=== PATIENT | male | born 1950 | race Two or more races ===

== ENCOUNTER → 2021-09-28 07:53 | Outpatient (BNVA) | payer MEDICARE, SELFPAY | PROVIDERS: PCP Internal Medicine; Visit Provider Nurse Practitioner Family | DX: M10.9 Gout, unspecified (principal) | CPT/HCPCS: 99202 ==

== ENCOUNTER 2021-10-18 10:31 | Outpatient (REF) | payer MEDICARE, SELFPAY ==
[2021-10-18 11:51] LABS: Blood Urea Nitrogen 17 mg/dL (9-16); Estimated Glomerular Filt Rate > 60; Uric Acid 5.9 mg/dL (3.4-7.0)
== END 2021-10-18 10:32 | disposition home or self-care (01) ==
LOC: HO.HMGCLDS 10:31
PROVIDERS: Visit Provider Nurse Practitioner Family
DX: M10.9 Gout, unspecified (principal)
CPT/HCPCS: 36415; 82565; 84520; 84550

== ENCOUNTER → 2021-10-20 08:55 | Outpatient (BNVA) | payer MEDICARE, SELFPAY | PROVIDERS: PCP Internal Medicine; Visit Provider Nurse Practitioner Family | DX: M10.9 Gout, unspecified (principal); Z79.899 Other long term (current) drug therapy | CPT/HCPCS: 99212 ==

== ENCOUNTER 2021-12-27 08:11 | Outpatient (REF) | payer MEDICARE, SELFPAY ==
[2021-12-27 12:00] LABS: Blood Urea Nitrogen 15 mg/dL (9-16); Estimated Glomerular Filt Rate > 60; Uric Acid 4.7 mg/dL (3.4-7.0)
== END 2021-12-27 08:12 | disposition home or self-care (01) ==
LOC: HO.HMGCLDS 08:11
PROVIDERS: Visit Provider Nurse Practitioner Family
DX: M10.9 Gout, unspecified (principal); Z79.899 Other long term (current) drug therapy
CPT/HCPCS: 36415; 82565; 84520; 84550

== ENCOUNTER → 2021-12-29 13:29 | Outpatient (BNVA) | payer MEDICARE, SELFPAY | PROVIDERS: PCP Internal Medicine; Referring Provider Internal Medicine; Visit Provider Nurse Practitioner Family | DX: M10.9 Gout, unspecified (principal) | CPT/HCPCS: 99212 ==

== ENCOUNTER 2022-12-18 08:37 | Outpatient (AMB) | payer MEDICARE, SELFPAY ==
[2022-12-18 08:43] VITALS: BP 154/74; PULSE 75; TEMP 36.6; O2SAT 97; BMI 28.6
--- NOTE | 2022-12-18 08:43 | A.OFFVIS_ITS ---
Intake Vital Signs 12/18/22 08:43 Height 5 ft 9 in Weight 193 lb 12.581 oz BMI 28.6 BP 154/74 H Blood Pressure Location Lt brachial Position Sitting Pulse 75 Pulse Source Pulse Oximeter Temp 97.9 F Temp Source Skin Pulse Oximetry (%) 97 Oxygen Delivery Method Room Air Intake Visit Reasons: Gout Intake Note: Patient presents today for yearly follow up on gout. 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 He says he did have an attack of gout back in August. This was promptly treated with a course of prednisone and symptoms resolved within a few days. It involved swelling and pain at the right 1st toe where he had previous gout attacks although it seemed to be more in the first IP joint rather than the first MTP joint. He does not seem to have any side effects with 200 mg daily allopurinol or with the course of prednisone. Other joints have not been painful. [facility] Medical History (Updated 12/18/22 @ 08:57 by Salvador Higgins MD) Acute medial meniscus tear of right knee Gout Surgical History History of arthroscopy of left shoulder H/O knee surgery H/O hand surgery History of appendectomy Family History Mother Colon cancer Family/Other Prostate cancer Father Diabetes Social History Household Members: Spouse Housing: House Are you a primary senior resident care director to a significant other at home: No Do you presently have visiting nurse or other home services: No Alcohol intake: current Alcohol intake frequency: holidays/special occasions only Alcohol type: wine Patient Tobacco Use Status: Never used Tobacco e-Cigarette/Vaping Use: Never Used service: No Current occupational status: retired Review of Systems Const Details: Negative for appetite change, weight change, fever, chills, malaise and fatigue Skin/Breast Details: Negative for itching, rash, hives, Raynaud's symptoms, sun sensitivity, and skin cancer Adebayo/Lymph Details: Negative for excessive bruising or bleeding. Physical Exam Vital Signs: Last Vital Signs Temp 97.9 F 12/18/22 08:43 Pulse 75 12/18/22 08:43 BP 154/74 H 12/18/22 08:43 Pulse Ox 97 12/18/22 08:43 Oxygen Delivery Method Room Air 12/18/22 08:43 BMI result Body Mass Index 28.6 APPEARANCE: Patient in no acute distress EXTREMITIES: No edema, no calf tenderness, normal peripheral pulses. SKIN: No inflammatory or neoplastic lesions. Normal color and turgor JOINT EXAM:?? Hands: LEFT: Normal pain-free range of motion without tenderness, swelling, increased warmth or erythema. 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 Small area of puckering on left palm at the base of the 5th finger at the area where he has Dupuytrens contracture on the other hand. RIGHT: Normal pain free range of motion without tenderness, swelling, increased warmth or erythema. Dupuytrens contracture, on palm at the base of the 5th finger. Wrists:? Normal pain-free range of motion without tenderness, swelling, increased warmth or erythema. Elbows: Normal pain-free range of motion without tenderness, swelling, increased warmth or erythema. Shoulders:? Full range of motion without pain. No tenderness, weakness, swelling, increased warmth or erythema. Feet: LEFT? Normal pain-free range of motion without tenderness, swelling, increased warmth or erythema. RIGHT: Slight bony enlargement at the 1st MTP without tenderness. The IP joint also is a bit thickened consistent with tophi. His 2nd toe is thi ckened, with very firm enlargement also consistent with some urate deposits. However the areas have no redness, tenderness, swelling, increased warmth or erythema. ? Results Reviewed Results Reviewed: Laboratory Tests 12/27/21 08:16 Creatinine 0.91 Uric Acid 4.7 Assessment & Plan Assessment & Plan (1) Gout: Comment: episodic toe sweling and pain. erosion seen at right 2nd toe 10/03 allopurinol started- uric acid at goal 12/2021 on 200 mg daily Code(s): M10.9 - Gout, unspecified Plan Gout with only one episode of gout this past year. The uric acid when checked in the spring was at a good level so we will continue with the current 200 mg daily allopurinol. I also gave him a printed prescription for prednisone to use if neeeded for an acute attack. I asked him to also go to the lab today to recheck on the uric acid level and we will also check a creatinine. He wants to follow through with having his primary doctor prescribe the allopurinol. I told him that was okay with me. If he or the patient have any questions they could call us. Orders: Orders Uric Acid Today M10.9 - Gout, unspecified Creatinine Today M10.9 - Gout, unspecified Medications: Changed From prednisone In the event of a gout attack: 3 daily for 3 days, 2 daily for 3 days, then 1 daily for 3 days 10 mg PO DIRECTED PRN M10.9 - Gout, unspecified To prednisone In the event of a gout attack: 3 daily for 3 days, 2 daily for 3 days, then 1 daily for 3 days 10 mg PO DIRECTED 18 tabs 0RF M10.9 - Gout, unspecified Refilled allopurinol 200 mg (2 x 100 mg) PO DAILY 180 tabs 3RF M10.9 - Gout, unspecified Coding Level of Care Code Est Pt Level 3 (75687) Diagnoses Gout M10.9
== END 2022-12-18 09:05 | disposition home or self-care (01) ==
PROVIDERS: PCP Internal Medicine; Visit Provider Internal Medicine Rheumatology
DX: M10.9 Gout, unspecified (principal)
CPT/HCPCS: 99213

== ENCOUNTER → 2022-12-18 08:37 | Outpatient (BNVA) | payer MEDICARE, SELFPAY | PROVIDERS: PCP Internal Medicine; Visit Provider Internal Medicine Rheumatology | DX: M10.9 Gout, unspecified (principal); Z79.899 Other long term (current) drug therapy | CPT/HCPCS: 36415; 82565; 84550; 99212 ==

== ENCOUNTER 2022-12-18 09:08 | Outpatient (REF) | payer MEDICARE, SELFPAY ==
[2022-12-18 11:10] LABS: Estimated Glomerular Filt Rate > 60
== END 2022-12-18 09:09 | disposition home or self-care (01) ==
LOC: HO.10HDL 09:08
PROVIDERS: Visit Provider Internal Medicine Rheumatology
DX: Z13.89 Encounter for screening for other disorder (principal)
CPT/HCPCS: 36415; 82565; 84550

== ENCOUNTER 2023-10-26 10:10 | Outpatient (AMB) | payer MEDICARE, SELFPAY ==
--- OUTSIDE RECORDS SUMMARY | 2023-10-26 10:12 | XMS_ITS | Continuity of Care Document ---
Author Organization [facility] Address [address] [place] [address]- Care Team Providers Care Oncology Specialist Name Role Phone aSge Coronado MD Primary Care Physician [phone] [facility] Date[facility]): 04/27/22 - 05/27/22 [facility] [address] [place], [place] [address] Allergies, Adverse Reactions, Alerts No Known Allergies Immunizations Given and Recorded Vaccine Date Status Refusal Reason influenza virus vaccine, inactivated 11/14/21 Chandra rded influenza virus vaccine, inactivated 11/05/20 Chandra rded influenza virus vaccine, inactivated 10/25/19 Chandra rded influenza virus vaccine, inactivated 11/19/18 Chandra rded influenza virus vaccine, inactivated 11/21/17 Chandra rded influenza virus vaccine, inactivated 11/22/16 Chandra rded influenza virus vaccine, inactivated 11/27/14 Chandra rded influenza virus vaccine, inactivated 11/17/13 Chandra rded influenza virus vaccine, inactivated 10/30/12 Chandra rded influenza virus vaccine, inactivated 11/16/11 Chandra rded influenza virus vaccine, inactivated 11/08/10 Chandra rded influenza virus vaccine, inactivated 11/13/09 Chandra rded influenza virus vaccine, inactivated 11/14/08 Chandra rded influenza virus vaccine, inactivated 11/30/07 Chandra rded [id number] 12y+ bivalent booster vax 11/14/21 Recorded SARS-CoV-2 (COVID-19) mRNA BNT-162b2 vac 05/31/21 Recorded SARS-CoV-2 (COVID-19) mRNA BNT-162b2 vac 11/05/20 Recorded SARS-CoV-2 (COVID-19) mRNA BNT-162b2 vac 04/14/20 Recorded SARS-CoV-2 (COVID-19) mRNA BNT-162b2 vac 03/24/20 Recorded tetanus-diphtheria toxoids (Td) 11/29/20 Recorded tetanus-diphtheria toxoids (Td) 07/17/05 Recorded pneumococcal 13-valent vaccine 01/22/19 Recorded zoster vaccine, inactivated 11/10/18 Recorded zoster vaccine, inactivated 08/10/18 Recorded pneumococcal 23-valent vaccine 05/21/15 Recorded Zoster Vaccine Live 08/17/11 Recorded tetanus/diphtheria/pertussis, acel(Tdap) 11/02/10 Recorded Medications Albuterol (Eqv-ProAir HFA) Inhalation, Every 6 hours, 0 Refills, Maintenance, 07/13/21 16:23:00 EDT, Partial fill upon patientrequest if the prescription is for a schedule II opioid drug. Start Date: 07/13/21 Status: Ordered allopurinol 100 mg oral tablet TAKE 1 TABLET BY MOUTH DAILY FOR 1 WEEK THEN 2 TABS DAILY Start Date: 11/07/21 Status: Ordered Arnuity Ellipta 100 mcg inhalation powder = 100 mcg, Inhalation, Every 24 hours, # 30 each, 1 Refills, Maintenance, 11/07/21 9:08:00 EDT, Powder, [id number], Partial fill upon patient request if the prescription is for a schedule II opioid drug. Start Date: 11/07/21 Status: Ordered atorvastatin 20 mg oral tablet 1 tablet = 20 mg, By Mouth, Daily, # 90 tablet, 3 Refills, Maintenance, 04/25/22 10:54:00 EDT, Tablet, [id number], Partial fill upon patient request if the prescription is for a schedule II opioid drug. Start Date: 04/25/22 Status: Ordered levothyroxine 125 mcg (0.125 mg) oral tablet See Instructions, 1 tablet By Mouth Daily, # 102 tablet, 3 Refills, Maintenance, 04/25/22 10:54:00 EDT, Tablet, [id number], Partial fill upon patient request if the prescription is for a schedule II opioid drug. Start Date: 04/25/22 Status: Ordered lisinopril 40 mg oral tablet 1 tablet = 40 mg, By Mouth, Daily, # 90 tablet, 2 Refills, Maintenance, 04/25/22 10:55:00 EDT, Tablet, [id number], Partial fill upon patient request if the prescription is for a schedule II opioid drug. Start Date: 04/25/22 Status: Ordered metoprolol 50 mg oral tablet, extended release 50 mg, 1, tablet, By Mouth, Daily, # 90 tablet, Refills 1, Tot. Refills 1, Maintenance, 04/25/22 10:55:00 EDT, Route to Pharmacy Electronically, [facility]/pharmacy #[id number], Partial fill upon patient request if the prescription is for a schedule II opioid drug. Start Date: 04/25/22 Status: Ordered omeprazole 20 mg oral enteric coated capsule 1 capsule = 20 mg, By Mouth, Daily, # 90 capsule, 3 Refills, Maintenance, 04/25/22 10:55:00 EDT, ECCapsule, [facility]/pharmacy #[id number], Partial fill upon patient request if the prescription is for a schedule II opioid drug. Start Date: 04/25/22 Status: Ordered sildenafil 100 mg oral tablet 1 tablet = 100 mg, By Mouth, Daily, 0 Refills, Maintenance, 07/13/21 16:23:00 EDT, Partial fill upon patient request if the prescription is for a schedule II opioid drug. Start Date: 07/13/21 Status: Ordered Problem List Condition Confirmation Course Effective Dates Status H ealth Status Informant Acquired hypothyroidism Confirmed Active Asthma Confirmed Active Environmental allergies Confirmed Active Erectile dysfunction Confirmed Active Family history of colon cancer Confirmed Active GERD (gastroesophageal reflux disease) Confirmed Active Generalized anxiety disorder Confirmed Active Gout; Dr Higgins Confirmed Active Hard of hearing Confirmed Active History of diverticulitis; 02/19, 02/20 Confirmed Active HTN (hypertension) Confirmed Active Impaired fasting glucose Confirmed Active Elevated LFTs Confirmed Active Mixed hyperlipidemia Confirmed Active Obesity Confirmed Active Fatty liver Confirmed Active Social History Social History Type Response Smoking Status Former smoker, quit more than 30 days ago; Other: Quit in his 20s; entered on: 11/07/21 Sex Patient Care team information Care Team Personnel Name: Sage Coronado MD Position: [facility] Primary Care Physician Member Role: PCP Address: Address: [address] [place] [address]- Care Team Related Persons Name: ALICJA DALAL Address: [address] [address]
--- OUTSIDE RECORDS SUMMARY | 2023-10-26 10:12 | XMS_ITS | Continuity of Care Document ---
Author Organization [facility] Address [address] [place] [address]- Care Team Providers Care Electronic Systems Technician Name Role Phone Sage Coronado MD Primary Care Physician [phone] [place] [facility] [place] Date(s): 11/07/21 - 11/14/21 [facility] [address] [place], [place] [address] Diagnosis HTN (hypertension)(Discharge Diagnosis) - 11/07/21 Acquired hypothyroidism(Discharge Diagnosis) - 11/07/21 Asthma(Discharge Diagnosis) - 11/07/21 Impaired fasting glucose(Discharge Diagnosis) - 11/07/21 Family history of colon cancer(Discharge Diagnosis) - 11/07/21 Attending Physician: Sage Coronado MD Allergies, Adverse Reactions, Alerts No Known Allergies Immunizations Given and Recorded Vaccine Date Status Refusal Reason SARS-CoV-2 (COVID-19) mRNA BNT-162b2 vac 05/31/21 Recorded SARS-CoV-2 (COVID-19) mRNA BNT-162b2 vac 11/05/20 Recorded SARS-CoV-2 (COVID-19) mRNA BNT-162b2 vac 04/14/20 Recorded SARS-CoV-2 (COVID-19) mRNA BNT-162b2 vac 03/24/20 Recorded tetanus-diphtheria toxoids (Td) 11/29/20 Recorded tetanus-diphtheria toxoids (Td) 07/17/05 Recorded influenza virus vaccine, inactivated 11/05/20 Chandra rded [...] influenza virus vaccine, inactivated 11/30/07 Chandra rded pneumococcal 13-valent vaccine 01/22/19 Recorded zoster vaccine, [...] 1 Refills, Maintenance, 11/07/21 9:08:00 EDT, Powder, [facility]/pharmacy #[id number], Partial fill upon patient request if the prescription is for a schedule II opioid drug. Start Date: 11/07/21 Status: Ordered atorvastatin 20 mg oral tablet 1 tablet = 20 mg, By Mouth, Daily, 0 Refills, Maintenance, 07/18/19 11:46:00 EDT Start Date: 07/18/19 Status: Ordered levothyroxine 125 mcg (0.125 mg) oral tablet See Instructions, 1 tablet By Mouth Daily, except Sunday take 2 tabs, 0 Refills, Maintenance, 07/13/21 16:23:00 EDT, Partial fill upon patient request if the prescription is for a schedule II opioid drug. Start Date: 07/13/21 Status: Ordered lisinopril 40 mg oral tablet 1 tablet = 40 mg, By Mouth, Daily, # 90 tablet, 0 Refills, Maintenance, 11/07/21 9:00:00 EDT, Tablet, Partial fill upon patient request if the prescription is for a schedule II opioid drug. Start Date: 11/07/21 Status: Ordered metoprolol 50 mg oral tablet, extended release 50 mg, 1, tablet, By Mouth, Daily, # 90 tablet, Refills 1, Tot. Refills 1, Maintenance, 11/07/21 9:09:00 EDT, Route to Pharmacy Electronically, [facility]/pharmacy #[id number], Partial fill upon patient request if the prescription is for a schedule II opioid drug. Start Date: 11/07/21 Status: Ordered omeprazole 20 mg oral delayed release tablet 1 tablet = 20 mg, By Mouth, Daily, 0 Refills, Maintenance, 07/18/19 11:47:00 EDT Start Date: 07/18/19 Status: Ordered sildenafil 100 mg oral tablet [...] Obesity Confirmed Active Fatty liver Confirmed Active Diagnosis Diagnosis Type Effective Dates Health Status Clinical Service Informant HTN (hypertension) Discharge Diagnosis 11/07/21 Acquired hypothyroidism Discharge Diagnosis 11/07/21 Asthma Discharge Diagnosis 11/07/21 Impaired fasting glucose Discharge Diagnosis 11/07/21 Family history of colon cancer Discharge Diagnosis 11/07/21 Procedures Procedure Date Related Diagnosis Body Site Status Knee joint operation - R 2019 Completed Operative procedure on hand - L 04/2017 Completed Distal claviculectomy L 2008 C ompleted Appendectomy Completed Vital Signs Most recent to oldest [Reference Range]: 1 Pulse Rate [55-90 bpm] 74 bpm (11/07/21 8:26 AM) Blood Pressure [90-138/55-84 mm Hg] 158/ 85mm Hg *H* (11/07/21 8:26 AM) Blood pressure sites Arm, right (11/07/21 8:26 AM) Social History Social History Type Response Smoking Status Former smoker, quit more than 30 days ago; Other: Quit in his 20s; entered on: 11/07/21 Sex Patient Care team information Personnel Name: Sage Coronado MD Address: Address: [address] [place] [address]
--- OUTSIDE RECORDS SUMMARY | 2023-10-26 10:12 | XMS_ITS | Continuity of Care Document ---
Author Organization [facility] Address [address] [place] [address]- Care Team Providers Care Furnace Puncher Name Role Phone Sage Coronado MD Primary Care Physician [facility] Date[facility]s): 11/20/21 - 12/20/21 [facility] [address] [place], [place] [address] Allergies, Adverse Reactions, Alerts No Known Allergies [...] 1 Refills, Maintenance, 11/07/21 9:08:00 EDT, Powder, [facility]/pharmacy #[id number], Partial fill upon patient request if [...] mg, By Mouth, Daily, # 90 tablet, 1 Refills, Maintenance, 11/17/21 10:35:00 EDT, Tablet, [facility]/pharmacy #[id number], Partial fill upon patient request if the prescription is for a schedule II opioid drug. Start Date: 11/17/21 Status: Ordered metoprolol 50 mg oral tablet, extended release 50 mg, 1, tablet, By Mouth, Daily, # 90 tablet, Refills 1, Tot. Refills 1, Maintenance, 11/07/21 9:09:00 EDT, Route to Pharmacy Electronically, [facility]/pharmacy #[id number], Partial fill upon patient request if the [...] Team Personnel Name: Sage Coronado MD Position: S Primary Care Physician Member Role: PCP Address: Address: [address] [place] [address]- Care Team Related Persons Name: ALICJA DALAL Address: home [address] [place] [address]
--- OUTSIDE RECORDS SUMMARY | 2023-10-26 10:12 | XMS_ITS | Continuity of Care Document ---
Author Organization [facility] Address [address] [place] [address]- Care Team Providers Care Electrical Design Engineer Name Role Phone Ivonne MILLER, Sage Primary Care Physician [facility] Date[facility]s): 07/13/22 - 08/12/22 [facility] [address] [place], [place] [address] Allergies, Adverse Reactions, Alerts No Known Allergies [...] influenza virus vaccine, inactivated 11/30/07 Chandra rded [id number] 12y+ bivalent booster vax 11/14/21 Recorded SARS-CoV-2 [...] 1 Refills, Maintenance, 11/07/21 9:08:00 EDT, Powder, [facility]/pharmacy #[id number], Partial fill upon patient request if the prescription is for a schedule II opioid drug. Start Date: 11/07/21 Status: Ordered atorvastatin 20 mg oral tablet 1 tablet = 20 mg, By Mouth, Daily, # 90 tablet, 3 Refills, Maintenance, 04/25/22 10:54:00 EDT, Tablet, [facility]/pharmacy #[id number], Partial fill upon patient request if the prescription is for a schedule II opioid drug. Start Date: 04/25/22 Status: Ordered levothyroxine 0.1 mg oral tablet 1 tablet = 100 mcg, By Mouth, Daily, # 90 tablet, 0 Refills, Maintenance, 07/13/22 22:05:00 EDT, Tablet, [facility]/pharmacy #[id number], Partial fill upon patient request if the prescription is for a schedule IIopioid drug. Start Date: 07/13/22 Status: Ordered lisinopril 40 mg oral tablet 1 tablet = 40 mg, By Mouth, Daily, # 90 tablet, 2 Refills, Maintenance, 04/25/22 10:55:00 EDT, Tablet, [facility]/pharmacy #[id number], Partial fill upon patient request if the prescription is for a schedule II opioid drug. Start Date: 04/25/22 Status: Ordered metoprolol 50 mg oral tablet, extended release 50 mg, 1, tablet, By Mouth, Daily, # 90 tablet, Refills 1, Tot. Refills 1, Maintenance, 04/25/22 10:55:00 EDT, Route to Pharmacy Electronically, [facility]/pharmacy #[id number], Partial fill upon patient request if the prescription is for a schedule II opioid drug. Start Date: 04/25/22 Status: Ordered omeprazole 20 mg oral enteric coated capsule 1 capsule = 20 mg, By Mouth, Daily, # 90 capsule, 3 Refills, Maintenance, 04/25/22 10:55:00 EDT, ECCapsule, [facility]/pharmacy #[id number], Partial fill upon patient request [...] Team Personnel Name: Sage Coronado MD Position: [facility] Physician - Primary Care Member Role: PCP Address: Address: [address] [address]- Care Team Related Persons Name: LÓPEZLUIS CARLOS SandhuE Address: home [address] [place] [address]
--- OUTSIDE RECORDS SUMMARY | 2023-10-26 10:12 | XMS_ITS | Continuity of Care Document ---
Author Organization [facility] Address [address] [place] [address]- Care Team Providers Care Manager Air Name Role Phone Not on Staff, PCP Primary Care Physician Unavail able [facility] Date(s): 07/13/21 - 08/12/21 [facility] [address] [place] [address]- Allergies, Adverse Reactions, Alerts No Known Allergies [...] Chandra rded influenza virus vaccine, inactivated 11/08/10 Hcandra rded influenza virus vaccine, inactivated 11/13/09 Chandra [...] opioid drug. Start Date: 07/13/21 Status: Ordered atorvastatin 20 mg oral tablet 1 tablet = 20 mg, By Mouth, Daily, 0 Refills, Maintenance, 07/18/19 11:46:00 EDT Start Date: 07/18/19 Status: Ordered levothyroxine 125 mcg (0.125 mg) oral tablet 1 tablet = 125 mcg, By Mouth, Daily, 0 Refills, Maintenance, 07/13/21 16:23:00 EDT, Partial fill upon patient request if the prescription is for a schedule II opioid drug. Start Date: 07/13/21 Status: Ordered levothyroxine 137 mcg (0.137 mg) oral capsule 1 capsule = 137 mcg, By Mouth, Daily, 0 Refills, Maintenance, 07/18/19 11:50:00 EDT Start Date: 07/18/19 Status: Ordered lisinopril 20 mg oral tablet 20 mg, 1, tablet, By Mouth, Daily, Refills 0, Maintenance, 07/18/19 11:50:00 EDT Start Date: 07/18/19 Status: Ordered metoprolol 25 mg oral tablet 25 mg, 1, tablet, By Mouth, 2 times a day, Refills 0, Maintenance, 07/18/19 11:51:00 EDT Start Date: 07/18/19 Status: Ordered omeprazole 20 mg oral delayed [...]
--- OUTSIDE RECORDS SUMMARY | 2023-10-26 10:12 | XMS_ITS | Continuity of Care Document ---
Author Organization [facility] Address [address] [place] [address]- Care Team Providers Care Smooth And Burr Worker Composites Name Role Phone Sage Coronado MD Primary Care Physician [phone] Encounter [facility] [place] Date(s): 05/10/22 - 06/09/22 [facility] [address] [place], [place] [address] Allergies, Adverse Reactions, Alerts No Known [...] influenza virus vaccine, inactivated 11/30/07 Chandra rded [id number] 12y+ bivalent booster vax 11/14/21 Recorded SARS-CoV-2 [...] drug. Start Date: 04/25/22 Status: Ordered levothyroxine 0.112 mg oral tablet 1 tablet = 112 mcg, By Mouth, Daily, # 90 tablet, 0 Refills, Maintenance, 06/08/22 21:13:00 EDT, Tablet, [id number], Partial fill upon patient request if the prescription is for a schedule IIopioid drug. Start Date: 06/08/22 Status: Ordered lisinopril 40 mg oral tablet [...] 04/25/22 10:55:00 EDT, Route to Pharmacy Electronically, [facility]/pharmacy #[id number], Partial fill upon patient request if the prescription is for a schedule II opioid drug. Start Date: 04/25/22 Status: Ordered omeprazole 20 mg oral enteric coated capsule 1 capsule = 20 mg, By Mouth, Daily, # 90 capsule, 3 Refills, Maintenance, 04/25/22 10:55:00 EDT, ECCapsule, [facility]/pharmacy #[id number], Partial fill upon patient request if [...] Team Personnel Name: Sage Coronado MD Position: [facility] Primary Care Physician Member Role: PCP Address: Address: [address] [place] [address]- Care Team Related Persons Name: ALICJA DALAL Address: [address] [address]
--- OUTSIDE RECORDS SUMMARY | 2023-10-26 10:12 | XMS_ITS | Continuity of Care Document ---
Author Organization [facility] Address [address] [place] [address]- Care Team Providers Care Roller Hand Name Role Phone Sage Coronado MD Primary Care Physician Encounter [facility] [place] Date(s): 08/23/22 - 09/22/22 [facility] [address] [place], [place] [address] Allergies, Adverse Reactions, Alerts [...] influenza virus vaccine, inactivated 11/30/07 Chandra rded [id number] 12y+ bivalent booster vax 11/14/21 Recorded SARS-CoV-2 [...] mcg, By Mouth, Daily, # 90 tablet, 3 Refills, Maintenance, 08/23/22 22:12:00 EDT, Tablet, [id number], Partial fill upon patient request if the prescription is for a schedule IIopioid drug. Start Date: 08/23/22 Status: Ordered lisinopril 40 mg oral tablet [...] Team Personnel Name: Sage Coronado MD Position: [facility] Physician - Primary Care Member Role: PCP Address: Address: [address] [place] [address]- Care Team Related Persons Name: ALICJA DALAL Address: home [address] [place] [id number]
--- OUTSIDE RECORDS SUMMARY | 2023-10-26 10:12 | XMS_ITS | Continuity of Care Document ---
Author Organization [facility] Address [address] [place] [address]- Care Team Providers Care Oncology Patient Navigator Name Role Phone Sage Coronado MD Primary Care Physician Encounter [facility] Date(s): 06/11/22 - 07/11/22 [facility] [address] [place], [place] [address] Allergies, Adverse Reactions, Alerts No [...] influenza virus vaccine, inactivated 11/30/07 Chandra rded [id number] 12y+ bivalent booster vax 11/14/21 Recorded SARS-CoV-2 [...] 04/25/22 10:55:00 EDT, Route to Pharmacy Electronically, [facility]/pharmacy #[id number], Partial fill upon patient request if the prescription is for a schedule II opioid drug. Start Date: 04/25/22 Status: Ordered omeprazole 20 mg oral enteric coated capsule 1 capsule = 20 mg, By Mouth, Daily, # 90 capsule, 3 Refills, Maintenance, 04/25/22 10:55:00 EDT, ECCapsule, [facility]/pharmacy #[id number], Partial fill upon patient request [...] Team Personnel Name: Sage Coronado MD Position: [facility] Physician - Primary Care Member Role: PCP Address: Address: [address] [place] [address]- Care Team Related Persons Name: ALICJA DALAL Address: [address] [address]
--- OUTSIDE RECORDS SUMMARY | 2023-10-26 10:12 | XMS_ITS | Continuity of Care Document ---
Author Organization [facility] Address [address] [place] [address]- Care Team Providers Care Zipper Ironer Name Role Phone Sage Coronado MD Primary Care Physician Encounter [facility] Date(s): 04/30/23 - 05/07/23 [facility] [address] [place], [place] [address] Encounter Diagnosis HTN (hypertension)(Discharge Diagnosis) - 04/30/23 Elevated LFTs(Discharge Diagnosis) - 04/30/23 Hip pain, bilateral(Discharge Diagnosis) - 04/30/23 Acquired hypothyroidism(Discharge Diagnosis) - 04/30/23 Impaired fasting glucose(Discharge Diagnosis) - 04/30/23 Mixed hyperlipidemia(Discharge Diagnosis) - 04/30/23 Nocturia(Discharge Diagnosis) - 04/30/23 Penile lesion(Discharge Diagnosis) - 04/30/23 Attending Physician: Sage Coronado MD Allergies, Adverse Reactions, Alerts No Known Allergies Immunizations Given and Recorded Vaccine Date Status Refusal Reason influenza virus vaccine, inactivated 11/14/22 Chandra rded influenza virus vaccine, inactivated 11/14/21 Chandra rded influenza virus vaccine, inactivated 11/05/20 Chandra rded influenza virus vaccine, inactivated 10/25/19 Chandra rded influenza virus vaccine, inactivated 11/19/18 Chandra rded influenza virus vaccine, inactivated 11/21/17 Hcandra rded influenza virus vaccine, inactivated 11/22/16 Chandra [...] influenza virus vaccine, inactivated 11/30/07 Chandra rded SARS-CoV-2(COVID-19)mRNA-LNP vac([id number]) 11/14/22 Recorded [id number] 12y+ bivalent booster vax 11/14/21 Recorded SARS-CoV-2 [...] Status: Ordered allopurinol 100 mg oral tablet 200 mg, 2, tablet, By Mouth, Daily, # 180 tablet, Refills 3, Tot. Refills 3, Maintenance, 04/30/23 9:05:00 EDT, Route to Pharmacy Electronically, [facility]/pharmacy #[id number], Partial fill upon patient requestif the prescription is for a schedule II opioid wes... Start Date: 04/30/23 Status: Ordered Arnuity Ellipta 100 mcg inhalation powder = 100 mcg, Inhalation, Every 24 hours, # 30 each, 1 Refills, Maintenance, 11/07/21 9:08:00 EDT, Powder, [facility]/pharmacy #[id number], Partial fill upon patient request if the prescription is for a schedule II opioid drug. Start Date: 11/07/21 Status: Ordered atorvastatin 20 mg oral tablet 1 tablet = 20 mg, By Mouth, Daily, # 90 tablet, 1 Refills, Maintenance, 03/29/23 4:14:00 EST, Tablet, [id number], Partial fill upon patient request if the prescription is for a schedule II opioid drug., 172.5, cm, 10/25/22 10:18:00 EDT, Height Start Date: 03/29/23 Status: Ordered colchicine 0.6 mg oral tablet 0.6 mg, 1, tablet, By Mouth, 2 times a day, PRN, # 30 tablet, Refills 0, Tot. Refills 0, Maintenance, as needed for gout pain, 04/30/23 9:07:00 EDT, Route to Pharmacy Electronically, [facility]/pharmacy #[id number], Partial fill upon patient request if the prescri... Start Date: 04/30/23 Status: Ordered levothyroxine 0.1 mg oral tablet 1 tablet = 100 mcg, By Mouth, Daily, # 90 tablet, 3 Refills, Maintenance, 04/30/23 9:21:00 EDT, Tablet, [facility]/pharmacy #[id number], Partial fill upon patient request if the prescription is for a schedule II opioid drug., 172.5, cm, 04/30/23 9:02:00 EDT, Height Start Date: 04/30/23 Status: Ordered lisinopril 40 mg oral tablet 1 tablet, By Mouth, Daily, # 90 tablet, 2 Refills, Maintenance, 11/24/22 12:09:00 EDT, [id number], 172.5, cm, 10/25/22 10:18:00 EDT, Height Start Date: 11/24/22 Status: Ordered Metoprolol Succinate ER 50 mg oral tablet, extended release 1 tablet, By Mouth, Daily, # 90 tablet, 1 Refills, Maintenance, 04/30/23 9:21:00 EDT, [id number], 172.5, cm, 04/30/23 9:02:00 EDT, Height Start Date: 04/30/23 Status: Ordered omeprazole 20 mg oral enteric coated capsule 1 capsule = 20 mg, By Mouth, Daily, # 90 capsule, 3 Refills, Maintenance, 04/30/23 9:21:00 EDT, EC Capsule, [facility]/pharmacy #[id number], Partial fill upon patient request if the prescription is for a scheduleII opioid drug., 172.5, cm, 04/30/23 9:02:00 EDT, H... Start Date: 04/30/23 Status: Ordered sildenafil 100 mg oral tablet 0.5, By Mouth, Daily, PRN erectile dysfunction, # 30 tablet, 0 Refills, Maintenance, 04/30/23 9:22:00 EDT, Tablet, [id number], Partial fill upon patient request if the prescription is for a schedule II opioid drug., 172.5, cm, 04/30/23 9... Start Date: 04/30/23 Status: Ordered Problem List Condition Confirmation Course Effective Dates Status H ealth Status Informant Acquired hypothyroidism Confirmed Active Asthma Confirmed Active Environmental allergies Confirmed Active Erectile dysfunction Confirmed Active Family history of colon cancer Confirmed Active GERD (gastroesophageal reflux disease) Confirmed Active Generalized anxiety disorder Confirmed Active Gout Confirmed Active Hard of hearing Confirmed Active History of diverticulitis; 02/19, 02/20 Confirmed Active HTN (hypertension) Confirmed Active Impaired fasting glucose Confirmed Active Elevated LFTs Confirmed Active Mixed hyperlipidemia Confirmed Active Obese class I Confirmed Active Fatty liver Confirmed Active Diagnosis Diagnosis Type Effective Dates Health Status Clinical Service Informant HTN (hypertension) Discharge Diagnosis 04/30/23 Elevated LFTs Discharge Diagnosis 04/30/23 Hip pain, bilateral Discharge Diagnosis 04/30/23 Acquired hypothyroidism Discharge Diagnosis 04/30/23 Impaired fasting glucose Discharge Diagnosis 04/30/23 Mixed hyperlipidemia Discharge Diagnosis 04/30/23 Nocturia Discharge Diagnosis 04/30/23 Penile lesion Discharge Diagnosis 04/30/23 Vital Signs Most recent to oldest [Reference Range]: 1 2 3 Height 172.5 cm (04/30/23 9:02 AM) 172.5 cm (04/30/23 8:44 AM) 172.5 cm (04/30/23 8:41 AM) Weight 91.6 kg (04/30/23 8:41 AM) Oxygen Saturation [94-100 %] 98 % (04/30/23 8:41 AM) Pulse Rate [55-90 bpm] 65 bpm (04/30/23 8:41 AM) Body Mass Index [18.5-24.99 kg/m2] 30.78 kg/m2 *>HHI* (04/30/23 8:41 AM) Blood Pressure [90-138/55-84 mm Hg] 145/90mm Hg *H* (04/30/23 9:02 AM) 158/91mm Hg *H* (04/30/23 8:44 AM) 164/89mm Hg *H* (04/30/23 8:41 AM) Blood pressure sites Arm, left (04/30/23 9:02 AM) Arm, left (04/30/23 8:44 AM) Arm, left (04/30/23 8:41 AM) Social History Social History Type Response Smoking Status Former smoker, quit more than 30 days ago; Other: Quit in his 20s; entered on: 11/07/21 Sex Note * Lynsey Lindsay: PERFORM, SIGN, VERIFY Event Display: Patient Education/Instruction Authored Date: [id number] [facility] Clinical Summary Name FILIPE DALAL Age 73 Years 1950 PCP Ivonne MILLER, Sage PCP [facility]# [id number] Visit Date 04/30/2023 08:30:00 Patient Instructions [facility] Additional Instructions: Scheduled Appointments?? Future Appointments ?No Future Appointments Scheduled Follow-Up Instructions ?? Diagnosis Hypothyroidism, unspecified; Impaired fasting glucose; Nocturia; Essential (primary) hypertension; Mixed hyperlipidemia; Generalized anxiety disorder; Other specified abnormal findings of blood chemistry; Pain in right hip Medications: Please continue your medications until treatment is completed or stopped by your provider. Discuss any questions related to medications with your provider. New Medications [facility]/pharmacy #[id number], [address] [place] [id number], [phone] Colchicine (colchicine 0.6 mg oral tablet) 1 tab(s) Oral twice a day as needed as needed for gout pain. Refills: 0. Next Dose: Levothyroxine (levothyroxine 0.1 mg oral tablet) 1 tab(s) Oral Daily. Refills: 3. Next Dose: Metoprolol (Metoprolol Succinate ER 50 mg oral tablet, extended release) 1 tab(s) Oral Daily. Refills: 1. Next Dose: Omeprazole (omeprazole 20 mg oral enteric coated capsule) 1 capsule Oral Daily. Refills: 3. Next Dose: Medications to Continue Taking That Have Changed [id number], [address] [place] [id number], [phone] - Allopurinol (allopurinol 100 mg oral tablet) 2 tab(s) Oral Daily. Refills: 3. Next Dose: [id number], [address] [place] [id number], [phone] - Sildenafil (sildenafil 100 mg oral tablet) 0.5 Oral Daily as needed erectile dysfunction. Refills: 0. Next Dose: Medications to Continue with No Changes These medications were not printed or sent to your pharmacy Albuterol (Albuterol (Eqv-ProAir HFA)) Inhalation every 6 hours. Next Dose: Atorvastatin (atorvastatin 20 mg oral tablet) 1 tab(s) Oral Daily. Refills: 1. Next Dose: Fluticasone (Arnuity Ellipta 100 mcg inhalation powder) 100 Microgram Inhalation every 24 hours. Refills: 1. Next Dose: Lisinopril (lisinopril 40 mg oral tablet) 1 tab(s) Oral Daily. Refills: 2. Next Dose: Allergy Info:?? NKA Medications Given This Visit Future Orders ?No future orders Future Orders ?Hemoglobin A1C (Monitoring)? Order Date:04/30/23?- Complete within?Comprehensive Metabolic Panel? Order Date:04/30/23?- Complete within?Lipid Panel? Order Date:04/30/23?- Complete within?TSH? Order Date:04/30/23?- Complete within?PSA? Order Date:04/30/23?- Complete within?Uric Acid? Order Date:04/30/23?- Complete within? Vital Signs Height 172.5 cm Weight 91.6 kg BMI 30.78 kg/m2 Blood Pressure 145 mm Hg/90 mm Hg Temperature Pulse Rate 65 bpm Respiratory Rate 02 Sat Mode of Delivery 98 %/ You can now view a summary of your hospital visit from the comfort of your home through a free online portal called [employer] is a website that allows you to securely view your medical information including discharge summary, medications and follow-up visits. ??You can alsosend a secure electronic message to your doctor???s office to request appointments, renew medications or just ask a question. You can enroll at [email or web address] or register during your next office visit. Disclaimer:?? The information provided is of a general nature and is intended to be used in conjunction with the recommendations and advice of your health care practitioner. ??Every effort has been made to ensure that the information provided is accurate and complete at the time it is provided to you however, as your needs change, or, as new ??information becomes available, different or additional instructions may be required. If you have questions, please consult with your primary care provider or pharmacist, as appropriate. ??This information is not intended to serve as substitution for assessment and evaluation by a qualified health care provider. If you do not have a primary care provider, you may find a [facility] provider by calling [employer] at [phone]. [facility], in keeping with [facility] guidance, no longer requires face masks for staff, patientsor visitors in most situations. Similar to time spent indoors at other locations, there is the chance that you were exposed to respiratory viruses during your time with us (such as flu or COVID-19).? If you develop symptoms concerning for a viral respiratory infection, please seek testing (and treatment if indicated) from your medical provider or home test kit. For information about the plan of care including goals and instructions for your diagnosis, please see the patient education orders section of this document. Patient Education Materials?? The content of this educational material or handout may have been modified, supplemented, or adapted from its original content and format to support your individualized medical care. Patient Care team information Care Team Personnel Name: Sage Coronado MD Position: [facility] Physician - Primary Care Member Role: PCP Address: Address: [address] [place] [address]- [place] Care Team Related Persons Name: ALICJA DALAL Address: [address] [address]
--- OUTSIDE RECORDS SUMMARY | 2023-10-26 10:12 | XMS_ITS | Continuity of Care Document ---
Author Organization [facility] Address [address] [place] [address]- Care Team Providers Care Resident Care Manager Rn Name Role Phone Sage Coronado MD Primary Care Physician Encounter [facility] ACCT R [id number] Date(s): 08/22/19 - 09/21/19 [facility] [address] [place] [address]- [facility] Attending Physician: Frank Owusu Admitting Physician: Frank Owusu Referring Physician: AdmFrank andre Allergies, Adverse Reactions, Alerts Substance Reaction Severity Status NKA Active Medications atorvastatin 20 mg oral tablet 1 tablet = 20 mg, By Mouth, Daily, 0 Refills, Maintenance, 07/18/19 11:46:00 EDT Start Date: 07/18/19 Status: Ordered levothyroxine 137 mcg (0.137 mg) [...]
--- OUTSIDE RECORDS SUMMARY | 2023-10-26 10:12 | XMS_ITS | Continuity of Care Document ---
Author Organization [facility] Address [address] [place] [address]- Care Team Providers Care Rag Collector Name Role Phone Sage Coronado MD Primary Care Physician [phone] Encounter [facility] Date(s): 02/15/22 - 03/17/22 [facility] [address] [place] [address]- Allergies, Adverse Reactions, Alerts No Known Allergies [...] Chandra rded influenza virus vaccine, inactivated 11/27/14 Cahndra rded influenza virus vaccine, inactivated 11/17/13 Chandra [...] 1 Refills, Maintenance, 11/07/21 9:08:00 EDT, Powder, [facility]/pharmacy #[id number], Partial fill upon patient request if [...] 1 Refills, Maintenance, 11/17/21 10:35:00 EDT, Tablet, [facility]/pharmacy #[id number], Partial fill upon patient request if the prescription is for a schedule II opioid drug. Start Date: 11/17/21 Status: Ordered metoprolol 50 mg oral tablet, extended release 50 mg, 1, tablet, By Mouth, Daily, # 90 tablet, Refills 1, Tot. Refills 1, Maintenance, 11/07/21 9:09:00 EDT, Route to Pharmacy Electronically, [facility]/pharmacy #[id number], Partial fill upon patient request if the prescription is for a schedule II opioid drug. Start Date: 11/07/21 Status: Ordered omeprazole 20 mg oral enteric coated capsule 1 capsule = 20 mg, By Mouth, Daily, # 90 capsule, 1 Refills, Maintenance, 02/16/22 11:25:00 EST, ECCapsule, [facility]/pharmacy #[id number], Partial fill upon patient request if the prescription is for a schedule II opioid drug. Start Date: 02/16/22 Status: Ordered sildenafil 100 mg oral tablet [...] Team Personnel Name: Sage Coronado MD Position: [facility] Primary Care Physician Member Role: PCP Address: Address: [address] [place] [address]- Care Team Related Persons Name: LUIS CARLOS DALALE Address: home [address] [place] [id number]
--- OUTSIDE RECORDS SUMMARY | 2023-10-26 10:13 | XMS_ITS | Continuity of Care Document ---
Author Organization [facility] Address [address] [place] [address]- Care Team Providers Care Rail Manager Name Role Phone Sage Coronado MD Primary Care Physician Encounter [facility] Date(s): 12/07/21 - 01/06/[address] [address]- Attending Physician: Frank Owusu Admitting Physician: AdmFrank andre Referring Physician: AdmtrFrank Allergies, Adverse Reactions, Alerts No Known Allergies [...] Chandra rded influenza virus vaccine, inactivated 11/13/09 Chanrda rded influenza virus vaccine, inactivated 11/14/08 Chandra [...] 1 Refills, Maintenance, 11/07/21 9:08:00 EDT, Powder, [facility]/pharmacy #[id number], Partial fill upon patient request [...] 1 Refills, Maintenance, 11/17/21 10:35:00 EDT, Tablet, [facility]/pharmacy #[id number], Partial fill upon patient request if the prescription is for a schedule II opioid drug. Start Date: 11/17/21 Status: Ordered metoprolol 50 mg oral tablet, extended release 50 mg, 1, tablet, By Mouth, Daily, # 90 tablet, Refills 1, Tot. Refills 1, Maintenance, 11/07/21 9:09:00 EDT, Route to Pharmacy Electronically, [facility]/pharmacy #[id number], Partial fill upon patient request if the [...] Care team information Care Team Personnel Name: Saeg Coronado MD Position: [facility] Primary Care Physician Member Role: PCP Address: Address: [address] [place] [address]- Care Team Related Persons Name: ALICJA DALAL Address: home [address] [place] [address]
--- OUTSIDE RECORDS SUMMARY | 2023-10-26 10:13 | XMS_ITS | Continuity of Care Document ---
Author Organization [facility] Address [address] [place] [address]- Care Team Providers Care Neurology Epilepsy Physician Name Role Phone Sage Coronado MD Primary Care Physician [phone] Encounter [facility] Date(s): 04/25/22 - 05/02/22 [facility] [address] [place], [place] [address] Encounter Diagnosis Loose bowel movements(Discharge Diagnosis) - 04/25/22 Irregular heartbeat(Discharge Diagnosis) - 04/25/22 Attending Physician: Sage Coronado MD Allergies, Adverse [...] influenza virus vaccine, inactivated 11/30/07 Chandra rded [id number] 12y+ bivalent booster vax 11/14/21 Recorded SARS-CoV-2 [...] 1 Refills, Maintenance, 11/07/21 9:08:00 EDT, Powder, [facility]/pharmacy #[id number], Partial fill upon patient [...] Mouth Daily, except Sunday take 2 tabs, # 102 tablet, 3 Refills, Maintenance, 04/25/22 10:54:00 EDT, Tablet, [id number], Partial fill upon patient request if theprescription is for a schedule II opioid drug. Start Date: 04/25/22 Status: Ordered lisinopril 40 mg oral tablet 1 tablet = 40 mg, By Mouth, Daily, # 90 tablet, 2 Refills, Maintenance, 04/25/22 10:55:00 EDT, [id number] Partial fill upon patient request if the prescription is for a schedule II opioid drug. Start Date: 04/25/22 Status: Ordered metoprolol 50 mg oral tablet, extended release 50 mg, 1, tablet, By Mouth, Daily, # 90 tablet, Refills 1, Tot. Refills 1, Maintenance, 04/25/22 10:55:00 EDT, Route to Pharmacy Electronically, [id number], Partial fill upon patient request if the prescription is for a schedule II opioid drug. Start Date: 04/25/22 Status: Ordered omeprazole 20 mg oral enteric coated capsule 1 capsule = 20 mg, By Mouth, Daily, # 90 capsule, 3 Refills, Maintenance, 04/25/22 10:55:00 EDT, ECCapsule, [id number], Partial fill upon patient request if [...] Diagnosis Diagnosis Type Effective Dates Health Status Cl inical Service Informant Loose bowel movements Discharge Diagnosis 04/25/22 Irregular heartbeat Discharge Diagnosis 04/25/22 Vital Signs Most recent to oldest [Reference Range]: 1 Weight 90.8 kg (04/25/22 10:18 AM) Oxygen Saturation [94-100 %] 99 % (04/25/22 10:18 AM) Pulse Rate [55-90 bpm] 72 bpm (04/25/22 10:18 AM) Blood Pressure [90-138/55-84 mm Hg] 136/ 66mm Hg (04/25/22 10:18 AM) Blood pressure sites Arm, left (04/25/22 10:18 AM) Social History Social History Type Response Smoking Status Former smoker, quit more than 30 days ago; Other: Quit in his 20s; entered on: 11/07/21 Sex EKG study * Event Display: ECG 12-Lead Authored Date: Please click on pdf link to open report * Event Display: ECG 12-Lead Authored Date: Ventricular Rate: 72 BPM Atrial Rate: 72 BPM P-R Interval: 206 ms QRS Duration: 84 ms Q-T Interval: 384 ms QTC Calculation(Bazett): 420 ms P [place]: 34 degrees R [place]: 8 degrees T [place]: 24 degrees Normal sinus rhythm Normal ECG When compared with ECG of 10-JUL-2019 08:13, No significant change was found Confirmed by JOSE DAVID REYNA MD ([id number]) on 04/26/2022 8:06:01 AM [place]: JOSE DAVID REYNA MD Note * Lynsey Lindsay: PERFORM, SIGN, VERIFY Event Display: Patient Education/Instruction Authored Date: [facility] *No Edge Adult Ped Clinical Summary Name FILIPE DALAL Age 72 Years 1950 PCP Sage Coronado MD PCP Visit Date 2022 10:01:00 Additional Instructions: Scheduled Appointments?? Future Appointments ?No Future Appointments Scheduled Follow-Up Instructions ?? Diagnosis Other fecal abnormalities; Polyp of colon; Nocturia; Cardiac arrhythmia, unspecified Medications: Please continue your medications until treatment is completed or stopped by your provider. Discuss any questions related to medications with your provider. New Medications [id number], [address] [place] [id number], [phone] Lisinopril (lisinopril 40 mg oral tablet) 1 tab(s) Oral Daily. Refills: 2. Next Dose: Metoprolol (metoprolol 50 mg oral tablet, extended release) 1 tab(s) Oral Daily. Refills: 1. Next Dose: Omeprazole (omeprazole 20 mg oral enteric coated capsule) 1 capsule Oral Daily. Refills: 3. Next Dose: Medications to Continue Taking That Have Changed [facility]/pharmacy #[id number], [address] [place], [place] [id number], [phone] - Atorvastatin (atorvastatin 20 mg oral tablet) 1 tab(s) Oral Daily. Refills: 3. Next Dose: - Levothyroxine (levothyroxine 125 mcg (0.125 mg) oral tablet) 1 tablet By Mouth Daily, except Sunday take 2 tabs. Refills: 3. Next Dose: Medications to Continue with No Changes These medications were not printed or sent to your pharmacy Albuterol (Albuterol (Eqv-ProAir HFA)) Inhalation every 6 hours. Next Dose: Allopurinol (allopurinol 100 mg oral tablet) TAKE 1 TABLET BY MOUTH DAILY FOR 1 WEEK THEN 2 TABS DAILY. Next Dose: Fluticasone (Arnuity Ellipta 100 mcg inhalation powder) 100 Microgram Inhalation every 24 hours. Refills: 1. Next Dose: Sildenafil (sildenafil 100 mg oral tablet) 1 tab(s) Oral Daily. Next Dose: Allergy Info:?? NKA Medications Given This Visit Future Orders ?No future orders Vital Signs Height Weight 90.8 kg BMI Blood Pressure 136 mm Hg/66 mm Hg Temperature Pulse Rate 72 bpm Respiratory Rate 02 Sat Mode of Delivery 99 %/ You can now view a summary of your hospital visit from the comfort of your home through a free online portal called [employer]. [employer] is a website that allows you to securely view your medical information including discharge summary, medications and follow-up visits. ??You can alsosend a secure electronic message to your doctor???s office to request appointments, renew medications or just ask a question. You can enroll at [email or web address] or register during your next office visit. [...] primary care provider, you may find a [facility] provider by calling [facility] [employer] at [phone]. For information about the plan of care [...] Care Physician Member Role: PCP Address: Address: [address] [place] [address]- Care Team Related Persons Name: ALICJA DALAL Address: [address] [address]
--- OUTSIDE RECORDS SUMMARY | 2023-10-26 10:13 | XMS_ITS | Continuity of Care Document ---
Author Organization [facility] Address [address] [place] [address]- Care Team Providers Care Eviction Specialist Name Role Phone Ivonne MILLER, Sage Primary Care Physician [facility] Date[facility]): 03/28/23 - 04/27/23 [facility] [address] [place], [place] [address] Allergies, Adverse Reactions, Alerts No Known [...] virus vaccine, inactivated 11/30/07 Chandra rded SARS-CoV-2(COVID-19)mRNA-LNP vac([id number]) 11/14/22 Recorded [id number] 12y+ bivalent booster vax 11/14/21 Recorded SARS-CoV-2 [...] 1 Refills, Maintenance, 11/07/21 9:08:00 EDT, Powder, [facility]/pharmacy #[id number], Partial fill upon patient request if [...] EDT, Height Start Date: 03/29/23 Status: Ordered levothyroxine 0.1 mg oral tablet [...] Refills, Maintenance, 11/24/22 12:09:00 EDT, [facility], 172.5, cm, 10/25/22 10:18:00 EDT, Height Start Date: 11/24/22 Status: Ordered Metoprolol Succinate ER 50 mg oral tablet, extended release 1 tablet, By Mouth, Daily, # 90 tablet, 1 Refills, Maintenance, 09/30/22 23:15:00 EDT, [id number] Start Date: 09/30/22 Status: Ordered omeprazole 20 mg oral enteric coated capsule 1 capsule = 20 mg, By Mouth, Daily, # 90 capsule, 3 Refills, Maintenance, 04/25/22 10:55:00 EDT, ECCjosianeule, [facility]/pharmacy #[id number], Partial fill upon patient request if [...] LFTs Confirmed Active Mixed hyperlipidemia Confirmed Active Fatty liver Confirmed Active Social History Social History Type Response Smoking Status Former smoker, quit more than 30 days ago; Other: Quit in his 20s; entered on: 11/07/21 Sex Patient Care team information Care Team Personnel Name: Sage Coronado MD Position: S Physician - Primary Care Member Role: PCP Address: Address: [address] [place] [address]- Care Team Related Persons Name: ALICJA DALAL Address: home [address] [place] [address]
--- OUTSIDE RECORDS SUMMARY | 2023-10-26 10:13 | XMS_ITS | Continuity of Care Document ---
Author Organization [facility] Address [address] [place] [address]- Care Team Providers Care Soft Sugar Cutter Name Role Phone Sage Coronado MD Primary Care Physician Encounter [facility] Date(s): 05/02/23 - 06/01/23 [facility] [address] [place], [place] [address] Allergies, Adverse Reactions, Alerts No Known Allergies [...] virus vaccine, inactivated 11/30/07 Chandra rded SARS-CoV-2(COVID-19)mRNA-LNP vac([id number]) 11/14/22 Recorded [id number] 12y+ bivalent booster vax 11/14/21 Recorded SARS-CoV-2 [...] 04/30/23 9:05:00 EDT, Route to Pharmacy Electronically, [facility]/pharmacy #[id number], Partial fill upon patient requestif the prescription is for a schedule II opioid wes... Start Date: 04/30/23 Status: Ordered Arnuity Ellipta 100 mcg inhalation powder = 100 mcg, Inhalation, Every 24 hours, # 30 each, 1 Refills, Maintenance, 11/07/21 9:08:00 EDT, Powder, [facility]/pharmacy #[id number], Partial fill upon patient request if the prescription is for a schedule II opioid drug. Start Date: 11/07/21 Status: Ordered atorvastatin 20 mg oral tablet 1 tablet = 20 mg, By Mouth, Daily, # 90 tablet, 1 Refills, Maintenance, 03/29/23 4:14:00 EST, Tablet, [facility]/pharmacy #[id number], Partial fill upon patient request if [...] 04/30/23 9:07:00 EDT, Route to Pharmacy Electronically, [facility]/pharmacy #[id number], Partial fill upon patient request if the prescri... Start Date: 04/30/23 Status: Ordered levothyroxine 0.1 mg oral tablet 1 tablet = 100 mcg, By Mouth, Daily, # 90 tablet, 3 Refills, Maintenance, 04/30/23 9:21:00 EDT, Tablet, [facility]/pharmacy #[id number], Partial fill upon patient request if the prescription is for a schedule II opioid drug., 172.5, cm, 04/30/23 9:02:00 EDT, Height Start Date: 04/30/23 Status: Ordered lisinopril 40 mg oral tablet 1 tablet, By Mouth, Daily, # 90 tablet, 2 Refills, Maintenance, 11/24/22 12:09:00 EDT, [facility], 172.5, cm, 10/25/22 10:18:00 EDT, Height Start Date: 11/24/22 Status: Ordered Metoprolol Succinate ER 50 mg oral tablet, extended release 1 tablet, By Mouth, Daily, # 90 tablet, 1 Refills, Maintenance, 04/30/23 9:21:00 EDT, [facility]/pharmacy #[id number], 172.5, cm, 04/30/23 9:02:00 EDT, Height Start Date: 04/30/23 Status: Ordered omeprazole 20 mg oral enteric coated capsule 1 capsule = 20 mg, By Mouth, Daily, # 90 capsule, 3 Refills, Maintenance, 04/30/23 9:21:00 EDT, EC Capsule, [facility]/pharmacy #[id number], Partial fill upon patient request if [...] Confirmed Active Impaired fasting glucose Confirmed Active Mixed hyperlipidemia Confirmed Active Obese class I Confirmed Active Colon polyps Confirmed Active Fatty liver Confirmed Active Social History Social History Type Response Smoking Status Former smoker, quit more than 30 days ago; Other: Quit in his 20s; entered on: 11/07/21 Sex Patient Care team information Care Team Personnel Name: Sage Coronado MD Position: [facility] Physician - Primary Care Member Role: PCP Address: Address: [address] [place] [address]- Care Team Related Persons Name: ALICJA DALAL Address: [address] [address]
--- OUTSIDE RECORDS SUMMARY | 2023-10-26 10:13 | XMS_ITS | Continuity of Care Document ---
Author Organization [facility] Address [address] [place] [address]- Care Team Providers Care Piano Instructor Name Role Phone Sage Coronado MD Primary Care Physician Encounter [facility] Date(s): 06/08/22 - 07/08/22 [facility] [address] [place], [place] [address] Allergies, Adverse Reactions, Alerts No Known [...] influenza virus vaccine, inactivated 11/30/07 Chandra rded [id number] 12y+ bivalent booster vax 11/14/21 Recorded SARS-CoV-2 [...] 04/25/22 10:55:00 EDT, Route to Pharmacy Electronically, [facility]/pharmacy #[id number], Partial fill upon patient request if the prescription is for a schedule II opioid drug. Start Date: 04/25/22 Status: Ordered omeprazole 20 mg oral enteric coated capsule 1 capsule = 20 mg, By Mouth, Daily, # 90 capsule, 3 Refills, Maintenance, 04/25/22 10:55:00 EDT, ECCapsule, [facility]/pharmacy #[id number], Partial fill upon patient request [...] Team Personnel Name: Sage Coronado MD Position: [facility] Physician - Primary Care Member Role: PCP Address: Address: [address] [place] [address]- Care Team Related Persons Name: ALICJA DALAL Address: [address] [address]
--- OUTSIDE RECORDS SUMMARY | 2023-10-26 10:13 | XMS_ITS | Continuity of Care Document ---
Author Organization [facility] Address [address] [place] [address]- Care Team Providers Care Is Analyst Name Role Phone Sage Coronado MD Primary Care Physician [phone] [facility]counter [facility] Date(s): 02/15/22 - 03/17/22 [facility] [address] [place], [place] [address] Allergies, Adverse Reactions, Alerts [...] 1 Refills, Maintenance, 11/07/21 9:08:00 EDT, Powder, [facility]/pharmacy #[id number], Partial fill upon patient [...] 1 Refills, Maintenance, 11/17/21 10:35:00 EDT, Tablet, [facility]/pharmacy #[id number], Partial fill upon patient request if the prescription is for a schedule II opioid drug. Start Date: 11/17/21 Status: Ordered metoprolol 50 mg oral tablet, extended release 50 mg, 1, tablet, By Mouth, Daily, # 90 tablet, Refills 1, Tot. Refills 1, Maintenance, 11/07/21 9:09:00 EDT, Route to Pharmacy Electronically, [facility]/pharmacy #[id number], Partial fill upon patient request if the prescription is for a schedule II opioid drug. Start Date: 11/07/21 Status: Ordered omeprazole 20 mg oral enteric coated capsule 1 capsule = 20 mg, By Mouth, Daily, # 90 capsule, 1 Refills, Maintenance, 02/16/22 11:25:00 EST, ECCapsule, [facility]/pharmacy #[id number], Partial fill upon patient [...] Team Personnel Name: Sage Coronado MD Position: [facility] Primary Care Physician Member Role: PCP Address: Address: [address] [place] [address]- Care Team Related Persons Name: MORGAN DALALLENE Address: home [address] [place] [address]
--- OUTSIDE RECORDS SUMMARY | 2023-10-26 10:13 | XMS_ITS | Continuity of Care Document ---
Author Organization [facility] Address [address] [place] [address]- Care Team Providers Care Fourdrinier Operator Name Role Phone Not on Staff, PCP Primary Care Physician Unavail able [facility] Date(s): 07/08/21 - 08/07/21 [facility] [address] [place] [address]- Allergies, Adverse Reactions, Alerts No Known Allergies [...]
--- OUTSIDE RECORDS SUMMARY | 2023-10-26 10:13 | XMS_ITS | Continuity of Care Document ---
Author Organization [facility] Address [address] [place] [address]- Care Team Providers Care Jewelry Casting Model Maker Apprentice Name Role Phone Sage Coronado MD Primary Care Physician [place] [facility] Date(s): 11/07/21 - 12/07/[address] [address] Attending Physician: Frank Owusu Admitting Physician: AdmtrFrank Referring Physician: Admtr, Ar8 Allergies, Adverse Reactions, Alerts No Known Allergies [...] 1 Refills, Maintenance, 11/07/21 9:08:00 EDT, Powder, [facility]/pharmacy #[id number], Partial fill upon [...] 1 Refills, Maintenance, 11/17/21 10:35:00 EDT, Tablet, [facility]/pharmacy #[id number], Partial fill upon patient request if the prescription is for a schedule II opioid drug. Start Date: 11/17/21 Status: Ordered metoprolol 50 mg oral tablet, extended release 50 mg, 1, tablet, By Mouth, Daily, # 90 tablet, Refills 1, Tot. Refills 1, Maintenance, 11/07/21 9:09:00 EDT, Route to Pharmacy Electronically, [facility]/pharmacy #[id number], Partial fill upon patient request if the [...] Personnel Name: Sage Coronado MD Address: [facility] [address]
--- OUTSIDE RECORDS SUMMARY | 2023-10-26 10:13 | XMS_ITS | Continuity of Care Document ---
Author Organization [facility] Address [address] [place] [address]- Care Team Providers Care Ep Tech Name Role Phone Ivonne MILLER, Sage Primary Care Physician [facility] Date(s): 03/29/23 - 04/28/23 [facility] [address] [place], [place] [address] Allergies, Adverse Reactions, [...] virus vaccine, inactivated 11/30/07 Chandra rded SARS-CoV-2(COVID-19)mRNA-LNP vac([id number]) 11/14/22 Recorded [id number] 12y+ bivalent booster vax 11/14/21 Recorded SARS-CoV-2 [...] 1 Refills, Maintenance, 11/07/21 9:08:00 EDT, Powder, [facility]/pharmacy #[id number], Partial fill upon patient request if [...] Refills, Maintenance, 11/24/22 12:09:00 EDT, [facility], 172.5, cm, 10/25/22 10:18:00 EDT, Height Start Date: 11/24/22 Status: Ordered Metoprolol Succinate ER 50 mg oral tablet, extended release 1 tablet, By Mouth, Daily, # 90 tablet, 1 Refills, Maintenance, 09/30/22 23:15:00 EDT, [facility] Start Date: 09/30/22 Status: Ordered omeprazole 20 mg oral enteric coated capsule 1 capsule = 20 mg, By Mouth, Daily, # 90 capsule, 3 Refills, Maintenance, 04/25/22 10:55:00 EDT, ECCjosianeule, [facility]/pharmacy #[id number], Partial fill upon patient request if [...] Primary Care Member Role: PCP Address: Address: [address] [place] [address]- Care Team Related Persons Name: ALICJA DALAL Address: home [address] [place] [address]
--- OUTSIDE RECORDS SUMMARY | 2023-10-26 10:13 | XMS_ITS | Continuity of Care Document ---
Author Organization [facility] Address [address] [place] [address]- Care Team Providers Care Traffic Workforce Representative Name Role Phone Ivonne MILLER, Sage Primary Care Physician [facility] Date(s): 07/13/22 - 08/12/22 [facility] [address] [place], [place] [address] Allergies, Adverse Reactions, Alerts No Known [...] Chandra rded influenza virus vaccine, inactivated 11/30/07 Hcandra rded [id number] 12y+ bivalent booster vax 11/14/21 Recorded SARS-CoV-2 [...] 1 Refills, Maintenance, 11/07/21 9:08:00 EDT, Powder, [facility]/pharmacy #[id number], Partial fill upon patient request if the prescription is for a schedule II opioid drug. Start Date: 11/07/21 Status: Ordered atorvastatin 20 mg oral tablet 1 tablet = 20 mg, By Mouth, Daily, # 90 tablet, 3 Refills, Maintenance, 04/25/22 10:54:00 EDT, Tablet, [facility]/pharmacy #[id number], Partial fill upon patient request if the prescription is for a schedule II opioid drug. Start Date: 04/25/22 Status: Ordered levothyroxine 0.1 mg oral tablet 1 tablet = 100 mcg, By Mouth, Daily, # 90 tablet, 0 Refills, Maintenance, 07/13/22 22:05:00 EDT, Tablet, [facility]/pharmacy #[id number], Partial fill upon patient request if the prescription is for a schedule IIopioid drug. Start Date: 07/13/22 Status: Ordered lisinopril 40 mg oral tablet 1 tablet = 40 mg, By Mouth, Daily, # 90 tablet, 2 Refills, Maintenance, 04/25/22 10:55:00 EDT, Tablet, [facility]/pharmacy #[id number], Partial fill upon patient request if the prescription is for a schedule II opioid drug. Start Date: 04/25/22 Status: Ordered metoprolol 50 mg oral tablet, extended release 50 mg, 1, tablet, By Mouth, Daily, # 90 tablet, Refills 1, Tot. Refills 1, Maintenance, 04/25/22 10:55:00 EDT, Route to Pharmacy Electronically, [facility]/pharmacy #[id number], Partial fill upon patient request if the prescription is for a schedule II opioid drug. Start Date: 04/25/22 Status: Ordered omeprazole 20 mg oral enteric coated capsule 1 capsule = 20 mg, By Mouth, Daily, # 90 capsule, 3 Refills, Maintenance, 04/25/22 10:55:00 EDT, ECCapsule, [facility]/pharmacy #[id number], Partial fill upon patient [...] Team Personnel Name: Sage Coronado MD Position: [facility] Physician - Primary Care Member Role: PCP Address: Address: [address], [place] [address]- Care Team Related Persons Name: LÓPEZLUIS CARLOS SandhuE Address: home [address] [place] [address]
--- OUTSIDE RECORDS SUMMARY | 2023-10-26 10:13 | XMS_ITS | Continuity of Care Document ---
Author Organization [facility] Address [address] [place] [address]- Care Team Providers Care Traveling Clerk Name Role Phone Ivonne MILLER, Sage Primary Care Physician [facility] Date(s): 09/27/22 - 10/27/22 [facility] [address] [place], [place] [address] Allergies, Adverse Reactions, Alerts No Known [...] influenza virus vaccine, inactivated 11/30/07 Chandra rded [id number] 12y+ bivalent booster vax 11/14/21 Recorded SARS-CoV-2 [...] opioid drug. Start Date: 04/25/22 Status: Ordered Metoprolol Succinate ER 50 mg oral tablet, extended release 1 tablet, By Mouth, Daily, # 90 tablet, 1 Refills, Maintenance, 09/30/22 23:15:00 EDT, [facility] Start Date: 09/30/22 Status: Ordered omeprazole 20 mg oral enteric coated capsule 1 capsule = 20 mg, By Mouth, Daily, # 90 capsule, 3 Refills, Maintenance, 04/25/22 10:55:00 EDT, ECCapsule, [facility]/pharmacy #[id number], Partial fill upon [...] Team Personnel Name: Sage Coronado MD Position: [facility] Physician - Primary Care Member Role: PCP Address: Address: [address] [place] [address]- Care Team Related Persons Name: ALICJA DALAL Address: [address] [address]
--- OUTSIDE RECORDS SUMMARY | 2023-10-26 10:13 | XMS_ITS | Continuity of Care Document ---
Author Organization [facility] Address [address] [place] [address]- Care Team Providers Care Soil Science Technical Officer Name Role Phone Sage Coronado MD Primary Care Physician Encounter [facility] Date(s): 05/07/22 - 06/06/22 [facility] [address] [place], [place] [address] Allergies, Adverse Reactions, Alerts No Known [...] influenza virus vaccine, inactivated 11/30/07 Chandra rded [id number] 12y+ bivalent booster vax 11/14/21 Recorded SARS-CoV-2 [...] 04/25/22 10:55:00 EDT, Route to Pharmacy Electronically, [facility]/pharmacy #[id number], Partial fill upon patient request if the prescription is for a schedule II opioid drug. Start Date: 04/25/22 Status: Ordered omeprazole 20 mg oral enteric coated capsule 1 capsule = 20 mg, By Mouth, Daily, # 90 capsule, 3 Refills, Maintenance, 04/25/22 10:55:00 EDT, ECCapsule, [facility]/pharmacy #[id number], Partial fill upon [...] Team Personnel Name: Sage Coronado MD Position: [facility] Primary Care Physician Member Role: PCP Address: Address: [address] [place] [address]- Care Team Related Persons Name: ALICJA DALAL Address: [address] [address]
--- OUTSIDE RECORDS SUMMARY | 2023-10-26 10:13 | XMS_ITS | Continuity of Care Document ---
Author Organization [facility] Address [address] [place] [address]- Care Team Providers Care Public Transportation Inspector Name Role Phone Sage Coronado MD Primary Care Physician Encounter [facility] Date(s): 09/09/21 - 10/09/[address] [address]- Attending Physician: Frank Owusu Admitting Physician: AdmFrank [...] opioid drug. Start Date: 07/13/21 Status: Ordered Care Team Personnel Name: Sage Coronado MD Address: [address] [place] [address]
--- OUTSIDE RECORDS SUMMARY | 2023-10-26 10:13 | XMS_ITS | Continuity of Care Document ---
Author Organization [facility] Address [address] [place] [address]- Care Team Providers Care Slurry Tank Tender Name Role Phone Sage Coronado MD Primary Care Physician Encounter [facility] Date(s): 05/30/23 - 06/29/23 [facility] [address] [place], [place] [address] Allergies, Adverse Reactions, Alerts No Known [...] virus vaccine, inactivated 11/30/07 Chandra rded SARS-CoV-2(COVID-19)mRNA-LNP vac([id number]) 11/14/22 Recorded [id number] 12y+ bivalent booster vax 11/14/21 Recorded SARS-CoV-2 [...] 04/30/23 9:05:00 EDT, Route to Pharmacy Electronically, [facility]/pharmacy #[id number], Partial fill upon patient requestif the prescription is for a schedule II opioid wes... Start Date: 04/30/23 Status: Ordered Arnuity Ellipta 100 mcg inhalation powder = 100 mcg, Inhalation, Every 24 hours, # 30 each, 1 Refills, Maintenance, 11/07/21 9:08:00 EDT, Powder, [facility]/pharmacy #[id number], Partial fill upon patient request if the prescription is for a schedule II opioid drug. Start Date: 11/07/21 Status: Ordered atorvastatin 20 mg oral tablet 1 tablet = 20 mg, By Mouth, Daily, # 90 tablet, 1 Refills, Maintenance, 03/29/23 4:14:00 EST, Tablet, [facility]/pharmacy #[id number], Partial fill upon patient request [...] 04/30/23 9:07:00 EDT, Route to Pharmacy Electronically, [facility]/pharmacy #[id number], Partial fill upon patient request if the prescri... Start Date: 04/30/23 Status: Ordered levothyroxine 0.1 mg oral tablet 1 tablet = 100 mcg, By Mouth, Daily, # 90 tablet, 3 Refills, Maintenance, 04/30/23 9:21:00 EDT, Tablet, [facility]/pharmacy #[id number], Partial fill upon patient request if the prescription is for a schedule II opioid drug., 172.5, cm, 04/30/23 9:02:00 EDT, Height Start Date: 04/30/23 Status: Ordered lisinopril 40 mg oral tablet 1 tablet, By Mouth, Daily, # 90 tablet, 2 Refills, Maintenance, 11/24/22 12:09:00 EDT, [facility], 172.5, cm, 10/25/22 10:18:00 EDT, Height Start Date: 11/24/22 Status: Ordered Metoprolol Succinate ER 50 mg oral tablet, extended release 1 tablet, By Mouth, Daily, # 90 tablet, 1 Refills, Maintenance, 04/30/23 9:21:00 EDT, [facility]/pharmacy #[id number], 172.5, cm, 04/30/23 9:02:00 EDT, Height Start Date: 04/30/23 Status: Ordered omeprazole 20 mg oral enteric coated capsule 1 capsule = 20 mg, By Mouth, Daily, # 90 capsule, 3 Refills, Maintenance, 04/30/23 9:21:00 EDT, EC Capsule, [facility]/pharmacy #[id number], Partial fill upon patient request [...] Team Personnel Name: Sage Coronado MD Position: [facility] Physician - Primary Care Member Role: PCP Address: Address: [address] [place] [address]- Care Team Related Persons Name: ALICJA DALAL Address: [address] [address]
--- OUTSIDE RECORDS SUMMARY | 2023-10-26 10:13 | XMS_ITS | Continuity of Care Document ---
Author Organization [facility] Address [address] [place] [address]- Care Team Providers Care Ep Technologist Name Role Phone Sage Coronado MD Primary Care Physician Encounter [facility] Date(s): 06/08/22 - 07/08/22 [facility] [address] [place], [place] [address] Allergies, Adverse Reactions, Alerts No [...] influenza virus vaccine, inactivated 11/30/07 Chandra rded [id number] 12y+ bivalent booster vax 11/14/21 Recorded SARS-CoV-2 [...] 04/25/22 10:55:00 EDT, Route to Pharmacy Electronically, [facility]/pharmacy #[id number], Partial fill upon patient request if the prescription is for a schedule II opioid drug. Start Date: 04/25/22 Status: Ordered omeprazole 20 mg oral enteric coated capsule 1 capsule = 20 mg, By Mouth, Daily, # 90 capsule, 3 Refills, Maintenance, 04/25/22 10:55:00 EDT, ECCapsule, [facility]/pharmacy #[id number], Partial fill upon patient request [...] Team Personnel Name: Sage Coronado MD Position: [facility] Physician - Primary Care Member Role: PCP Address: Address: [address] [place] [address]- Care Team Related Persons Name: ALICJA DALAL Address: [address] [address]
--- NOTE | 2023-10-26 10:17 | AM.OFFWIN_ITS ---
Intake Vital Signs 10/26/23 10:20 10/26/23 10:54 Height 5 ft 9 in Weight 192 lb BMI 28.4 BP 160/80 H 140/80 H Blood Pressure Location Rt brachial Rt brachial Position Sitting Sitting Pulse 82 Pulse Source Pulse Oximeter Pulse Oximetry (%) 98 Oxygen Delivery Method Room Air Intake Visit Reasons: EP-lt side under chest muscle pulled Intake Note: Patient here for discomfort under left breast which started last night. Patient Tobacco Use Status: Never used Tobacco Allergies No Known Allergies Allergy (Verified 10/26/23 10:21) Do you need a note to return to daycare/school/sports/work: No HPI HPI Comments History of Present Illness Details Patient is a 73-year-old male with a past medical history of hypertension, hypothyroidism, hypercholesteremia and diverticulitis complaining of left-sided reproducible chest pain. He states he was fixing the sprinklers yesterday in his yd when he made a movement and suddenly felt a strain in his left mid chest. He states he woke up around 2 in the morning and could feel a pain in that area. He states if he pushes on it in between his ribs, he can fe el the pain again. He was worried that it was his heart so he took his blood pressure which was a normal reading at home. His blood pressure was a little elevated in the office this morning but only rechecked it it came down nicely. He is asking for an EKG. He denies any sweating, any nausea, vomiting, dizziness, lightheadedness, chest pressure, back pain, jaw pain, neck pain, left arm pain or stomach pain. [facility] Medical History (Updated 10/26/23 @ 11:20 by Leslee Cotto PA-C) Acute medial meniscus tear of right knee Gout Surgical History History of arthroscopy of left shoulder H/O knee surgery H/O hand surgery History of appendectomy Family History Mother Colon cancer Family/Other Prostate cancer Father Diabetes Social History Household Members: Spouse Housing: House Are you a primary daycare teacher to a significant other at home: No Do you presently have visiting nurse or other home services: No 75 years or older and lives alone: No Alcohol intake: current Alcohol intake frequency: holidays/special occasions only Alcohol type: wine Patient Tobacco Use Status: Never used Tobacco e-Cigarette/Vaping Use: Never Used service: No Current occupational status: retired Review of Systems Const All systems reviewed & are unremarkable except as noted in HPI and below Physical Exam Vital Signs: Last Vital Signs Pulse 82 10/26/23 10:20 BP 160/80 H 10/26/23 10:20 Pulse Ox 98 10/26/23 10:20 Oxygen Delivery Method Room Air 10/26/23 10:20 BMI result Body Mass Index 28.4 Const General: cooperative, healthy appearing, comfortable, no acute distress and well developed Orientation/consciousness: patient oriented x3 Limitations: no limitations HEENT Head: Yes normal to inspection Ears: hearing grossly normal bilaterally General nose exam: Normal external nose present Face and sinus: Yes normal facial exam Eyes General: appearance normal, both eyes and all related structures Neck Neck: Yes normal visual inspection and Yes full ROM Chest Chest palpation & inspection: normal inspection of the chest and tenderness (TTP in between ribs 6 & 7 anterior axillary line towards theback) Resp Effort & Inspection: normal respiratory effort and able to speak in complete sentences Auscultation: clear to auscultation bilaterally Cardio Rate: regular rate Rhythm: regular rhythm Heart sounds: normal S1 and S2 Skin General skin exam: no rashes or lesions noted Neuro General: patient oriented x3 Extrem General: Yes normal to inspection Office Procedures EKG Details: EKG showed normal sinus rhythm with 64 beats per minute, no ST or T-wave changes. It did show a 1st degree AV block which was present on an old EKG at [facility] from 04/25/2022. [id number], Complete Assessment & Plan Assessment & Plan (1) Intercostal muscle pain: Code(s): M79.18 - Myalgia, other site Plan: Patient remembers pulling the muscle, the muscle pain is reproducible. EKG NSR 64 BPM, no acute ST or T-wave changes. He does have an old first-degree AV block evident on an EKG from 04/25/2022 and 07/10/2019. Recommended ice and a leave and it will get better in a couple of weeks. (2) Intercostal muscle strain: Code(s): S29.011A - Strain of muscle and tendon of front wall of thorax, initial encounter Qualifiers: Encounter type: initial encounter Qualified Code(s): S29.011A - Strain of muscle and tendon of front wall of thorax, initial encounter Plan: See above Plan See above Coding Level of Care Code New Pt Level 4 (87856) Diagnoses Intercostal muscle pain M79.18 Intercostal muscle strain, initial encounter S29.011A Encounter type: initial encounter CPT Codes EKG - CPT: 68863-[id number], Complete ([id number])
[2023-10-26 10:20] VITALS: BP 160/80; PULSE 82; O2SAT 98; BMI 28.4
[2023-10-26 10:54] VITALS: BP 140/80
== END 2023-10-26 11:23 | disposition home or self-care (01) ==
PROVIDERS: PCP Internal Medicine; Visit Provider Nurse Practitioner Family
DX: S29.011A Strain of muscle and tendon of front wall of thorax, initial encounter (principal); M79.18 Myalgia, other site
CPT/HCPCS: 93000; 99204